=== PATIENT | female | born 2005 | race Caucasian/White ===

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

== ENCOUNTER 2024-05-05 20:09 | Emergency (ER) | payer OTHER ==
[2024-05-05 20:23] VITALS: TEMP 98
--- NOTE | 2024-05-05 20:43 | ED ---
General Adult HPI - General Chief complaint: Recheck/Abnormal Lab/Rx Stated complaint: difficulty swallowing-acid reflux Time Seen by Provider: 05/05/24 20:20 Source: patient Mode of arrival: ambulatory Limitations: no limitations - History of Present Illness Initial comments: This is a 18-year-old female with a history of hiatal hernia presenting to the emergency department chief complaint of pain burning sensation of her epigastric region and radiation into the mid chest. Patient states that on she had an episode of emesis that was strictly acid in the middle of the night that is occurred to her in the past secondary to acid reflux. States that she had an additional episode of emesis earlier today and since that time has been experie ncing a burning sensation in her throat and in her stomach. Patient has not been drinking and/or eating many fluids due to this burning sensation. She is attempted pepto, Tums, Pepcid with minimal relief. Patient denies heart palpitations, dizziness, lightheadedness, shortness of breath, cough, congestion, fevers, chills, rhinorrhea. - Related Data Home Medications Medication Instructions Recorded Confirmed Ibuprofen Oral Susp [Motrin Oral 250 mg PO Q8HR PRN 02/12/17 02/12/17 Susp] Previous Rx's Medication Instructions Recorded Phenazopyridine [Pyridium] 100 mg PO TID #6 tablet 02/12/17 Sulfamethox-Tmp 800-160Mg [Bactrim 1 each PO Q12HR #6 tab 02/12/17 Ds] Omeprazole [PriLOSEC] 20 mg PO AC-BRKFST #14 cap 05/05/24 Allergies Allergy/AdvReac Type Severity Reaction Status Date / Time No Known Allergies Allergy Verified 05/05/24 20:23 Review of Systems ROS Statement: Those systems with pertinent positive or pertinent negative responses have been documented in the HPI. ROS Other: All systems not noted in ROS Statement are negative. Past Medical History Past Medical History: No Reported History Additional Past Medical History / Comment(s): hernia History of Any Multi-Drug Resistant Organisms: None Reported Past Surgical History: No Surgical Hx Reported Past Psychological History: No Psychological Hx Reported Smoking Status: Never smoker Past Alcohol Use History: None Reported Past Drug Use History: None Reported General Exam Limitations: no limitations General appearance: alert, in no apparent distress Eye exam: Present: normal appearance, PERRL, EOMI. Absent: scleral icterus, conjunctival injection, periorbital swelling Neck exam: Present: normal inspection. Absent: tenderness, meningismus, lymphadenopathy Respiratory exam: Present: normal lung sounds bilaterally. Absent: respiratory distress, wheezes, rales, rhonchi, stridor Cardiovascular Exam: Present: regular rate, normal rhythm, normal heart sounds. Absent: systolic murmur, diastolic murmur, rubs, gallop, clicks GI/Abdominal exam: Present: soft, tenderness (mild epigastric), normal bowel sounds. Absent: distended, guarding, rebound, rigid Extremities exam: Present: normal inspection, full ROM, normal capillary refill. Absent: tenderness, pedal edema, joint swelling, calf tenderness Back exam: Present: normal inspection Skin exam: Present: warm, dry, intact, normal color. Absent: rash Course Vital Signs 05/05/24 05/05/24 20:21 21:55 Temperature 98 F Pulse Rate 91 66 Respiratory 18 1 L Rate Blood Pressure 133/94 128/82 O2 Sat by Pulse 99 100 Oximetry Medical Decision Making - Medical Decision Making Was pt. sent in by a medical professional or institution (, PA, TURNING SANDER OPERATOR, urgent care, hospital, or long term...) When possible be specific @ -No Did you speak to anyone other than the patient for history (EMS, parent, family, police, friend...)? What history was obtained from this source @ -No Did you review nursing and triage notes (agree or disagree)? Why? @ -I reviewed and agree with nursing and triage notes Were old charts reviewed (outside hosp., previous admission, EMS record, old EKG, old radiological studies, urgent care reports/EKG's, long term records)? Report findings @ -No old charts were reviewed Differential Diagnosis (chest pain, altered mental status, abdominal pain women, abdominal pain men, vaginal bleeding, weakness, fever, dyspnea, syncope, headache, dizziness, GI bleed, back pain, seizure, CVA, palpatations, mental health, musculoskeletal)? @ -Differential Chest Pain: Stable Angina, Unstable Angina, STEMI, NSTEMI Aortic Dissection, Pneumothorax, Musculoskeletal, Esophageal Spasm GERD, Cholecystitis, Pancreatitis, Zoster, this is not meant to be an all-inclusive list. EKG interpreted by me (3pts min.). @ -completed at 2114 sinus rhythm with sinus arrhythmia, ventricular rate 74, AL interval 170, QRS 93, QTc 392. No acute signs of ischemia. X-rays interpreted by me (1pt min.). @ -None done CT interpreted by me (1pt min.). @ -None done U/S interpreted by me (1pt. min.). @ -None done What testing was considered but not performed or refused? (CT, X-rays, U/S, labs)? Why? @ -None What meds were considered but not given or refused? Why? @ -None Did you discuss the management of the patient with other professionals (professionals i.e. DrSabra, PA, TURNING SANDER OPERATOR, lab, RT, psych nurse, rn social work, durability technician, teacher, learning and development officer, case specialist)? Give summary @ -No Was smoking cessation discussed for >3mins.? @ -No Was critical care preformed (if so, how long)? @ -No Were there social determinants of health that impacted care today? How? (Homelessness, low income, unemployed, alcoholism, drug addiction, transportation, low edu. Level, literacy, decrease access to med. care, correction, rehab)? @ -No Was there de-escalation of care discussed even if they declined (Discuss DNR or withdrawal of care, Hospice)? DNR status @ -No What co-morbidities impacted this encounter? (DM, HTN, Smoking, COPD, CAD, Cancer, CVA, ARF, Chemo, Hep., AIDS, mental health diagnosis, sleep apnea, morbid obesity)? @ -None Was patient admitted / discharged? Hospital course, mention meds given and route, prescriptions, significant lab abnormalities, going to OR and other pertinent info. @ -discharged. 18-year-old female with esophageal burning and chest pain. On my evaluation the patient she is resting up in no signs acute distress. vital signs are stable. Patient states that she is having a burning sensation in her esophagus that goes into her stomach. There is minimal clinical concern for ACS equivalent and patient's EKG is in sinus rhythm. Patient symptoms are likely secondary to heartburn/GERD rather than cardiac in nature. Patient is provided with oral Protonix and GI cocktail. On reevaluation patient is appearing markedly better states that her symptoms have essentially resolved. Patient is sent a prescription for omeprazole and instructed to take this as prescribed. Also, recommend that she does not eat at least 2 hours prior to bedtime and sleep with 2 pillows. All questions been answered at bedside and strict return parameters ran the patient she is verbalized understanding. Case discussed with Dr. Elaine Undiagnosed new problem with uncertain prognosis? @ -No Drug Therapy requiring intensive monitoring for toxicity (Heparin, Nitro, Insulin, Cardizem)? @ -No Were any procedures done? @ -No Diagnosis/symptom? @ -GERD, heartburn Acute, or Chronic, or Acute on Chronic? @ -acute Uncomplicated (without systemic symptoms) or Complicated (systemic symptoms)? @ -uncomplicated Side effects of treatment? @ -No Exacerbation, Progression, or Severe Exacerbation? @ -No Poses a threat to life or bodily function? How? (Chest pain, [place], [place], pneumonia, PE, COPD, DKA, ARF, appy, cholecystitis, CVA, Diverticulitis, Homicidal, Suicidal, threat to staff... and all critical care pts) @ -No Disposition Clinical Impression: GERD (gastroesophageal reflux disease) Disposition: HOME SELF-CARE Condition: Good Instructions (If sedation given, give patient instructions): GERD (Gastroesophageal Reflux Disease) (ED) Additional Instructions: Please return to the Emergency Department if symptoms worsen or any other concerns. Recommend that you do not eat at least 2 hours before bedtime, use 2 pillows at night, and take medication at night to minimize acid reflux. Take omeprazole as prescribed. Prescriptions: Omeprazole [PriLOSEC] 20 mg PO AC-BRKFST #14 cap Is patient prescribed a controlled substance at d/c from ED?: No Referrals: Jesus Lyons MD [STAFF PHYSICIAN] - 1-2 days Time of Disposition: 21:46
[2024-05-05] MEDS: PANTOPRAZOLE 40 MG TABLET PO STA (21:31)
[2024-05-05] MEDS: MAG HYDROX/AL HYDROX/SIMETH 30 ML, HYOSCYAMINE ELIXIR 10 ML, LIDOCAINE VISCOUS 2% 10 ML PO STA (21:32)
[2024-05-05 21:57] VITALS: BP 128/82; PULSE 66; RESP 1
== END 2024-05-05 21:55 | disposition home or self-care (01) ==
LOC: EC 20:09
DX: K21.9 Gastro-esophageal reflux disease without esophagitis (principal)
CPT/HCPCS: 93005; 99284